=== PATIENT | male | born 1985 | race African-American/Black ===

== ENCOUNTER 2019-03-29 08:45 | Emergency (ER) | payer OTHER ==
[~2019-03-29] VITALS: Ht 180.3 cm; Wt 104.5 kg
[2019-03-29] MEDS: ONDANSETRON HCL 4 MG/2 ML VIAL IM ONE ×2 (09:45→09:51)
[2019-03-29] MEDS: MORPHINE SULFATE 4 MG/ML SYRINGE IM ONE ×2 (09:45→09:51)
[2019-03-29 11:45] VITALS: BP 155/90
[2019-03-29] MEDS ORDERED: KETOROLAC TROMETHAMINE 60 MG/2 ML VIAL IM ONE (11:45)
== END 2019-03-29 12:17 | disposition home or self-care (01) ==
LOC: EMS 08:47
DX: S09.90XA Unspecified injury of head, initial encounter (principal); M54.2 Cervicalgia; V43.52XA Car driver injured in collision with other type car in traffic accident, initial encounter; Y93.89 Activity, other specified; Y92.89 Other specified places as the place of occurrence of the external cause; Y99.8 Other external cause status
CPT/HCPCS: 70450; 72125; 96372; 99285; J1885; J2270; J2405